=== PATIENT | female | born 1990 | race Caucasian/White ===

== ENCOUNTER → 2021-02-18 | Outpatient (CLI) | payer OTHER ==
--- NOTE | 2021-02-18 14:26 | KCIC ---
EXAM: Pelvic sonographic. HISTORY: Pelvic pain. TECHNIQUE: Sonographic imaging of the pelvis was performed. COMPARISON: None. FINDINGS: The uterus measures 8.8 x 6.7 x 4.8 cm. The endometrial stripe measures 11 mm in thickness. The ovaries are normal in size and demonstrate normal blood flow. There is a dominant right ovarian follicle measuring 1.3 cm. There is no pelvic free fluid. IMPRESSION: 1. Physiologic dominant right ovarian follicle measuring 1.3 cm. 2. Otherwise, unremarkable pelvic sonogram. Electronically signed by: Radha Ramos MD (02/18/2021 2:23 PM) [id number]
--- NOTE | 2021-02-18 14:40 | KCIC ---
EXAMINATION: Magnetic resonance imaging (MRI) of the cervical spine without contrast 02/18/2021 1:30 P M HISTORY: Neck pain for years. Right upper extremity pain getting worse. TECHNIQUE: Multiplanar multi-weighted MRI of the cervical spine was performed without intravenous con trast using the standard cervical spine protocol. Contrast information: None administered COMPARISON: None available. FINDINGS: The alignment of the cervical spine is normal. Vertebral bodies demonstrate normal signal intensity o n all sequences. No acute fracture is identified; however, if trauma is suspected, a CT scan would b e a more sensitive examination for fractures. The craniocervical junction is normal. The visualized portions of the skull base and the posterior fossa are normal. The spinal cord demonstrates normal signal intensity on all sequences. Disc desiccation at C2-C3, C3-C4 and C4-C5. No soft tissue abnorm ality is identified. Normal signal voids are present in the vertebral arteries. C2-C3: The disk is normal in configuration. There is no facet arthropathy. There is no uncovertebral joint disease. There is no neuroforaminal stenosis. There is no spinal canal stenosis. C3-C4: The disk is normal in configuration. There is no facet arthropathy. There is no uncovertebral joint disease. There is no neuroforaminal stenosis. There is no spinal canal stenosis. C4-C5: Mild disc bulge. There is no facet arthropathy. There is no uncovertebral joint disease. Ther e is no neuroforaminal stenosis. There is mild spinal canal stenosis. C5-C6: Mild disc bulge. There is no facet arthropathy. There is no uncovertebral joint disease. Ther e is no neuroforaminal stenosis. There is mild spinal canal stenosis. C6-C7: The disk is normal in configuration. There is no facet arthropathy. There is no uncovertebral joint disease. There is no neuroforaminal stenosis. There is no spinal canal stenosis. C7-T1: The disk is normal in configuration. There is no facet arthropathy. There is no uncovertebral joint disease. There is no neuroforaminal stenosis. There is no spinal canal stenosis. 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 Electronically signed by: Sayra Orozco MD (02/18/2021 2:38 PM) [id number]
== END ==
LOC: KCIC US 12:53
PROVIDERS: ATTEND Family Medicine
DX: M48.02 Spinal stenosis, cervical region (principal); R10.2 Pelvic and perineal pain; M54.5 Low back pain
CPT/HCPCS: 72141; 76856